=== PATIENT | female | born 1980 | race Caucasian/White ===

== ENCOUNTER 2017-04-26 09:00 | Outpatient (CLI) ==
--- NOTE | 2017-04-26 21:43 | MRI ---
EXAM: Cervical spine MRI without contrast. HISTORY: Cervical pain. COMPARISON: None. TECHNIQUE: Multiplanar, multisequence MR images were acquired of the cervical spine without contras t. Some of the sequences are degraded by patient motion and decreased [id number] which produces decreased spatial and contrast resolution. This may be related to increased distance of the cervic al spine from the coil due to the patient's large body habitus. FINDINGS: The craniocervical junction is normal and the cervical cord is unremarkable. There is st raightening of the usual cervical lordosis. The cervical vertebra are normal in height and intrinsi c bone marrow signal. There are no paravertebral masses. Visualized lung apices are clear. C2-3: There is a minor dorsal spondylotic ridge that is asymmetric to the left without spinal steno sis or foraminal stenosis. C3-4: There is a minor posterior disc bulge without spinal stenosis or foraminal stenosis. C4-5: There is a minor posterior disc bulge without central canal stenosis or foraminal stenosis. C5-6: There is a posterior disc osteophyte complex that is asymmetric to the left with a superimpose d central and left posterolateral disc extrusion that extends above and below the disc level. This mildly indents the left ventral cervical cord and effaces the left lateral recess where it may adver sely contact the left C6 nerve roots. Bilateral uncovertebral hypertrophy is present and there is m ild spinal stenosis and mild left and minor right neural foraminal stenosis. AP diameter of the the waqar sac is 8.2 mm. C6-7: There is a mild posterior disc bulge and minor right foraminal stenosis. Ligamentum flavum h ypertrophy is present. There is no central canal stenosis. C7-T1: There is a minor posterior disc bulge without central canal stenosis or foraminal stenosis. IMPRESSION: 1. Mild discogenic disease C5-6 that is asymmetric to the left with a central and left posterior di sc extrusion that mildly indents the left cervical cord without edema. 2. Left lateral recess stenosis C5-6 with encroachment on the left C6 nerve roots. 3. Minor cervical degenerative spondylosis which causes mild C5-6 spinal stenosis.
== END 2017-04-26 09:01 | disposition home or self-care (01) ==
LOC: RAD 09:00
PROVIDERS: ATTEND Physician Assistant
DX: M54.2 Cervicalgia (principal)

== ENCOUNTER 2018-11-24 08:49 | Outpatient (CLI) | END 2018-11-24 08:50 | disposition home or self-care (01) | LOC: LAB 08:49 | PROVIDERS: ATTEND Pain Medicine Interventional Pain Medicine | DX: Z01.812 Encounter for preprocedural laboratory examination (principal) | CPT/HCPCS: 36415; 82565; 82570 ==

== ENCOUNTER 2018-11-27 09:42 | Outpatient (CLI) ==
--- NOTE | 2018-11-27 10:34 | DI ---
EXAM: Three views of the cervical spine. History: Cervical stenosis and neck pain. Comparison: MRI of the cervical spine 04/26/2017 Findings: No acute fracture or subluxation of the cervical spine. Straightening of the normal curva ture of the cervical spine. Mild to moderate disc space narrowing at C5-6 with small osteophytes. T he other disc space heights are preserved. No prevertebral soft tissue swelling. Predental space is not widened. Impression: 1. No acute osseous abnormality of the cervical spine. 2. Mild to moderate degenerative disc disease at C5-6
--- NOTE | 2018-11-27 11:01 | DI ---
Exam: Three views of the lumbar spine. Comparison: CT lumbar spine performed 01/06/2016. Reason for exam: Disc degeneration. FINDINGS: No acute fracture or listhesis. The vertebral body heights are well maintained. There is mild degenerative disease with intervertebral body disc space height narrowing. There is preservati on of the lumbar lordotic curve. Likely pars defects at L5-S1. Impression: 1. No acute fracture or listhesis in the lumbar spine. 2. Mild degenerative disease
--- NOTE | 2018-11-27 12:57 | MRI ---
EXAM: MRI lumbar spine without and with IV contrast. DATE: 27 November 2018. HISTORY: Disc degeneration with radiculopathy. TECHNIQUE: Sagittal and axial T1W, T2W sequences of the lumbar spine along with sagittal IR and micheline nal T2W sequences were obtained using 1.2 Tiffanie magnet. Contrast: Dotarem - 20 ml IV. Note: Grainy appearance and motion artifacts on several sequences limit sensitivity. COMPARISON: LS spine series 27 November 2018. MRI L-spine 06/21/2011. CT L-spine January 2016. FINDINGS: Minimal (3 degrees) leftward curvature of the lumbar spine is evident. A 2.3 mm retrolist hesis of L4 relative to L5 is evident. No other subluxation, acute fracture, osseous malignancy is d etected. Left L5 pars interarticularis defect is better seen on CT scan. Right L5 hypertrophic ahumada ges with questionable spondylolysis is noted. Lumbar vertebra are normal in height. Tiny, chronic S chmorl's nodes are seen at T10, T11, T12, and L1. Bone marrow signal is overall normal, except for m arked Modic type 1 degenerate endplate changes at L4-5. Moderate/marked L4-5 disc space narrowing is detected. No acute sacral fracture or stress reaction is revealed. Conus medullaris terminates at T12-L1. Visible spinal cord is normal. No abnormal contrast enhancement is identified within the sp inal cord, nerve roots, vertebral bodies or intervertebral discs. No retroperitoneal lymphadenopathy, paraspinal mass, or aortic aneurysm is evident. Paraspinal muscu lature is symmetric bilaterally. Visible portions of the liver, spleen, adrenal glands, and kidneys reveal no distinct neoplasm. CBD is 7.6 mm diameter, without distinct choledocholithiasis, acute bahena creatitis, or definitive pancreatic head mass. Gallbladder is not seen on these images. Visible por tion uterus reveals no distinct neoplasm. No bowel obstruction or malignancy is identified. Segmental analysis: T11-12: Normal. T12-L1: Normal. L1-2: Normal. L2-3: Normal. L3-4: Minimal posterior disc bulge and minor facet arthropathy do not cause central stenosis or fora cathy stenosis. L4-5: S/P left hemilaminectomy and partial discectomy. There appears to be persistent T2W bright, T 1W intermediate signal and mild enhancement surrounding the left L5 nerve root as the nerve exits the thecal sac. Minor retrolisthesis of L4, small/moderate concentric disc bulge, left posterolateral s pondylotic ridge at the L4 inferior endplate, mild/moderate facet arthropathy, and moderate ligamentu m flavum hypertrophy cause mild central canal stenosis, minor right foraminal narrowing, and moderate left foraminal stenosis. Left L4 nerve root contacts disc bulge/osteophyte near the foramen. L5-S1: Minor posterior to foraminal disc bulge, mild right facet arthropathy, and moderate left face t arthropathy cause mild central canal stenosis and minor/mild narrowing at the opening to each sofia en. IMPRESSIONS: 1. Previous L4-5 partial discectomy. Probable small amount of granulation/scar tissue surrounding t he left L5 descending nerve root, which may be a source for pain/radiculopathy. 2. L-spine multilevel facet disease and mild DDD. 3. Mild central canal stenoses at L4-5 and L5-S1. 4. T-L-spine small, chronic Schmorl's nodes. 5. Left L5 and possible right L5 pars defects. 6. L4-5 and L5-S1 foraminal stenoses as described. Left L4 nerve root contacts a disc bulge /osteop hyte near the foramen, and may be a source for pain/radiculopathy. 7. Mildly prominent CBD. Correlate with clinical symptoms and surgical history.
== END 2018-11-27 09:43 | disposition home or self-care (01) ==
LOC: RAD 09:42
PROVIDERS: ATTEND Pain Medicine Interventional Pain Medicine
DX: M51.16 Intervertebral disc disorders with radiculopathy, lumbar region (principal); M51.17 Intervertebral disc disorders with radiculopathy, lumbosacral region; M51.36 Other intervertebral disc degeneration, lumbar region; M51.37 Other intervertebral disc degeneration, lumbosacral region; M96.1 Postlaminectomy syndrome, not elsewhere classified; M50.222 Other cervical disc displacement at C5-C6 level; M50.223 Other cervical disc displacement at C6-C7 level; M48.02 Spinal stenosis, cervical region